=== PATIENT | male | born 1955 | race Caucasian/White ===

== ENCOUNTER 2024-07-24 18:14 | Emergency (ER) | payer OTHER, SELFPAY ==
[2024-07-24 18:16] VITALS: BP 179/98
[2024-07-24 18:37] LABS: % Basophils 0.4 % (0-2); % Eosinophils 3.3 % (0-6); % Immature Granulocytes 0.4 % (0-0.5); % Lymphocytes 14.5 % (20.5-51.1); % Monocytes 10.7 % (1.7-9.3); % Neutrophils 70.7 % (42.2-75.2); Absolute Eosinophils 0.3 10^3/uL (0-0.7); Absolute Lymphocytes 1.2 10^3/uL (1.2-3.4); Absolute Monocytes 0.9 10^3/uL (0.1-0.6); Absolute Neutrophils 5.9 10^3/uL (1.4-6.5); Hematocrit 40.9 % (39.0-52.0); Hemoglobin 14.3 g/dL (13.0-18.0); Mean Corpuscular Hgb 30.2 pg (27.0-31.0); Mean Corpuscular Volume 86.5 fL (80.0-94.0); Mean Platelet Volume 9.1 fL (7.4-10.4); Nucleated Red Blood Cells % 0 % (-); Platelet Count 238 10^3/uL (130-400); Red Blood Cell Count 4.73 10^6/uL (4.70-6.10); White Blood Cell Count 8.4 10^3/uL (4.8-10.8)
[2024-07-24 18:52] LABS: ALT (SGPT) 34 U/L (0-50); AST (SGOT) 37 U/L (17-59); Albumin 4.7 g/dl (3.5-5.0); Alkaline Phosphatase 69 U/L (38-126); Blood Urea Nitrogen 25 mg/dl (9-20); Calcium 9.7 mg/dl (8.4-10.2); Carbon Dioxide 24 mmol/L (22-30); Chloride 107 mmol/L (98-107); Glucose 98 mg/dl (70-99); Sodium 142 mmol/L (135-145); Total Bilirubin 0.6 mg/dl (0.2-1.3); Total Protein 7.6 g/dl (6.3-8.2); eGFR > 60.00
[2024-07-24] MEDS: NSS 1000 IV (20:46)
[2024-07-24 20:48] VITALS: BMI 27.7
--- NOTE | 2024-07-24 20:50 | ED.GENMED ---
History of Present Illness
General
Chief Complaint: Breathing Problem
Source: patient and family (Patient's and daughter at bedside)
Exam Limitations: none
Time Seen by Provider: 07/24/24 20:03
Nursing documentation reviewed up to this point in time: agreed with
History of Present Illness
History of Present Illness:
Patient is a 68-year-old male presenting to the emergency department with persistent cough and abnormal chest x-ray noted at urgent care. Patient states he was initially seen in urgent care on 07/02/24 with URI symptoms, cough and diagnosed with
pneumonia. He was treated with a 5-day course of Augmentin and azithromycin, along with an albuterol inhaler. Symptoms seem to mainly improve. He only describes a very mild lingering nonproductive cough at this time. He was seen at urgent care
again today for follow-up chest x-ray after completing antibiotic which apparently showed, 'worsening disease'. He was sent to the emergency department for further evaluation
At this time�patient denies any fever or productive cough. He denies any hemoptysis. No chest pain or shortness of breath. No lower extremity edema or swelling.
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
Patient is not a smoker.
Review of Systems
Review of Systems
Allergies reviewed?: Yes
All Other Systems: ROS reviewed and negative except as documented in HPI and ROS
Phy Exam
Physical Exam
Physical Exam:
Vitals: Patient's vital signs are stable. Afebrile
General: Patient is very well appearing, no acute distress. Nontoxic appearing
Skin: Warm and dry, no rashes or lesions
Head: Normocephalic, atraumatic
Eyes: Sclera nonicteric. EOMs intact. No nystagmus.
Throat: Protecting airway
Neck: Normal ROM, no cervical spine tenderness, no meningismus. No JVD
Cardiac: Regular rate and rhythm, no murmurs.
Pulm: In no apparent respiratory distress. O2 saturation 98 on room air normal respiratory effort, no wheezes, rales, rhonchi heard on exam.
Abdomen: Abdomen soft and nontender.
Extremities: No evidence of cyanosis or edema. Palpable DP pulses bilaterally
Neuro: AAOx3. Grossly intact.
Psychiatric: Normal affect.
Scores
Heart Failure Risk
Heart Failure Risk Score: Not Applicable
Course
Orders/Labs/Results
Orders:
Orders
07/24/24 18:24
Complete Blood Count/With Diff Urgent
Comprehensive Metabolic Panel Urgent
07/24/24 20:[address] [CT Chest With Iv Contrast] Urgent
Comment:
Reason For Exam: b/l infilatrates on chest xray, cough
0.9% Sodium Chloride 1000 ml [Nss] 1,000 ml IV BOLUS
Abnormal Lab Results
07/24/24
18:24
Absolute Monos (auto) 0.9 H 10^3/uL
(0.1-0.6)
Lymphocytes % 14.5 L %
(20.5-51.1)
Monocytes % 10.7 H %
(1.7-9.3)
BUN 25 H mg/dl
(9-20)
07/24/24 18:24
07/24/24 18:24
Vital Signs
Initial and Last Documented VS:
Initial Vital Signs
Temp Pulse Resp BP Pulse Ox
98.5 F 80 18 179/98 97
07/24/24 18:16 07/24/24 18:16 07/24/24 18:16 07/24/24 18:16 07/24/24 18:16
Last Documented Vital Signs
Temp Pulse Resp BP Pulse Ox
98.5 F 81 16 160/86 98
07/24/24 18:16 07/24/24 21:44 07/24/24 21:44 07/24/24 21:44 07/24/24 21:44
MDM/Problems Addressed
Differential Diagnosis Includes:
Not limited to: Chronic bronchitis, pneumonia, congestive heart failure, restrictive airway disease, malignancy, etc.
MDM/Problems Addressed:
68-year-old male presenting with abnormal chest x-ray in setting of recently treated pneumonia. No current fever, productive cough, chest pain, or shortness of breath. Vital stable. He is not hypoxic or tachypneic. Physical exam as above.
Patient very well-appearing, in no distress. Lungs are clear bilaterally. There is no wheezing. He is in no apparent respiratory distress with O2 saturation 98 on room air. Heart sounds regular rate and rhythm. No lower extremity edema.
Screening labs were sent in triage including CBC and CMP. There are no clinically significant abnormalities. There is no leukocytosis or left shift. I was able to obtain chest x-ray imaging from urgent care which does show bilateral lobar
opacities-somewhat progressed from initial chest x-ray on 07/02/2024. Overall�relatively low suspicion for acute infectious process given patient is afebrile, not hypoxic with no leukocytosis. He has no current infectious symptoms. Chest x-ray may
demonstrate postinfectious radiologic changes however�will obtain CT imaging of chest with contrast to rule out other underlying process or malignancy. Patient stable at this time.
Update: CT report shows diffuse bilateral consolidations along with mediastinal lymphadenopathy. While findings possibly secondary to multifocal pneumonia, malignancy also on differential. Case was discussed with residential remodeling subcontractor, Dr. Blake. CT
findings discussed at length with both patient and patient's �they were provided copy of report. They expressed verbal understanding. Emphasized concern for underlying malignancy and importance of very close follow-up outpatient. Given
patient is currently in no respiratory distress and appears very well and comfortable�feel he is stable for discharge home and immediate pulmonary follow-up outpatient. Given patient has no current infectious symptoms and is otherwise afebrile and
stable�do not feel additional antibiotics indicated at this time. Patient will contact residential remodeling subcontractor tomorrow, contact information was provided. He will also touch base with his PCP. Very strict return precautions discussed. Stable for discharge
home. Case was discussed with attending physician
Chronic conditions affecting care:
N/A
Acute Exacerbation and/or Progression of Chronic Illness:
N/A
*Radiology
Radiology exam reviewed: preliminary read by ED provider and radiology read reviewed
*Pulse Oximetry
Patient hypoxic: no
*EKG
Interpreted by ED Provider?: NA
*Utility Bag Assembler Interpretation
Rate: Utility Bag Assembler- N/A
*Critical Care Note
Total Time (30-74mins, 75-104mins- exclusive of procedures): Not Applicable
Data Reviewed
Review of Other/Old Records Reveals: Radiology Studies (Chest x-ray imaging obtained in urgent care on 07/02/2024 and 07/24/2024)
Source: previous radiology exam
Patient Management
Discussion with other providers: Area Captain (Case was discussed with pulmonology)
ED Attending Note
-
Portions of this chart may have been created with voice recognition software.� Occasional wrong word or��sound alike� substitutions may have occurred due to the inherent limitations of voice recognition software.
Discharge Plan
Departure
Patient Disposition: Home (Routine Discharge)
Date of Disposition: 07/24/24
Time of Disposition: 23:05
Patient with high blood pressure during this ER visit?: Yes
Discharge Problem:
Abnormal CT of the chest, Cough
Instructions: BLOOD PRESSURE
Referrals:
Krista Blake MD [Active] - Next open appointment
Edgard Tarango MD [Family Provider] -
Activity Restrictions/Additional Instructions:
Return to the emergency department for any high fevers, worsening/persistent cough, chest pain, shortness of breath/difficulty breathing, coughing up blood, worsening in current symptoms, or any other concerns
-As discussed�the CT imaging of your chest today showed abnormalities as discussed. These may represent a multifocal pneumonia although may also represent cancer. It is very important that you follow-up closely with pulmonology for further
evaluation/management. You will likely require further imaging or procedures.
-Stay well-hydrated. Continue to use your inhaler as needed for cough.
-Call pulmonology tomorrow morning to schedule follow-up. The contact information has been provided for you above.
-You should also contact your primary care for further evaluation/management. I have sent your information to our primary care schedulers to help you get in touch with a new PCP.
Monitor your symptoms closely and return to the emergency department with any acute worsening/new symptoms or any other concerns
Interventions
Interventions:
*Risk Screen - Suicide Last Done: 07/24/24 18:16
*General Assessment Last Done: 07/24/24 18:16
*Neglect/Abuse Screening Last Done: 07/24/24 18:16
*ED COVID-19 Vaccine History Last Done: 07/24/24 18:16
*Nursing Disposition Last Done: 07/24/24 23:16
ED- Cardiac Assessment Last Done: 07/24/24 20:48
ED- Pulmonary Assessment Last Done: 07/24/24 20:48
Discharge Date and Time
Discharge Date/Time: 07/24/24 23:22
Print Language: [email or web address]
[2024-07-24 21:44] VITALS: BP 160/86
== END 2024-07-24 23:22 | disposition home or self-care (01) ==
LOC: EMR 18:14
PROVIDERS: Student in an Organized Health Care Education/Training Program; EMERGENCY PHYSICIAN Emergency Medicine; FAMILY PHYSICIAN Internal Medicine
DX: R05.9 Cough, unspecified (principal)
CPT/HCPCS: 99284; 96360; 71260; 80053; 85025; Q9967

== ENCOUNTER → 2024-08-09 15:52 | Outpatient (REF) | payer OTHER, SELFPAY | LOC: RCS 15:52 | PROVIDERS: ATTENDING PHYSICIAN Nuclear Medicine Nuclear Cardiology; FAMILY PHYSICIAN Internal Medicine | DX: R06.02 Shortness of breath (principal); I25.10 Atherosclerotic heart disease of native coronary artery without angina pectoris | CPT/HCPCS: 93306 ==

== ENCOUNTER 2024-08-14 06:19 | Day surgery (SDC) | payer OTHER, SELFPAY ==
[2024-08-02 09:20] LABS: INR 0.94; PT 13.1 Sec (11.4-14.6)
[2024-08-02 09:21] LABS: APTT 27.4 Sec (23.4-35.0)
[2024-08-02 13:39] VITALS: BMI 26.4
[2024-08-14] VITALS (8 sets, daily range): BP systolic 119–175; BP diastolic 69–103; BMI 26.4
[2024-08-14 12:29] LABS: Brochalveolar Lavage Character Hazy (Clear); Brochalveolar Lavage Color Pink; Brochalveolar Lavage Volume 13 ml
[2024-08-14 12:30] LABS: Brochalveolar Lavage Character Hazy (Clear); Brochalveolar Lavage Color Pink; Brochalveolar Lavage Volume 12 ml
[2024-08-14 13:46] LABS: BAL Lymphocytes 12.5 %; BAL Macrophages 42 %; BAL Neutrophils 45.5 %; Brochalveolar Lavage WBC 4400 cells/ml
[2024-08-14 13:51] LABS: BAL Lymphocytes 10 %; BAL Macrophages 40 %; BAL Neutrophils 50 %; Brochalveolar Lavage WBC 23650 cells/ml
== END 2024-08-14 11:58 | disposition home or self-care (01) ==
LOC: GI 06:19
PROVIDERS: ATTENDING PHYSICIAN Internal Medicine Critical Care Medicine; FAMILY PHYSICIAN Internal Medicine
DX: R91.1 Solitary pulmonary nodule (principal); R91.8 Other nonspecific abnormal finding of lung field; D14.32 Benign neoplasm of left bronchus and lung; D14.31 Benign neoplasm of right bronchus and lung; J18.8 Other pneumonia, unspecified organism
CPT/HCPCS: 31629; 31628; 31624; 31623; 31627; 31654; 88173; 88305; 88312; 36415; 71045; 76000; 85610; 85730; 87015; 87070; 87102; 87116; 87205; 88112; 88333; 89051; 93005; 94640; C1887

== ENCOUNTER → 2025-02-20 13:15 | Outpatient (REF) | payer OTHER, SELFPAY | LOC: HWRAD 13:15 | PROVIDERS: ATTENDING PHYSICIAN Internal Medicine Critical Care Medicine; FAMILY PHYSICIAN Internal Medicine | DX: R91.8 Other nonspecific abnormal finding of lung field (principal); D86.9 Sarcoidosis, unspecified | CPT/HCPCS: 71250 ==